=== PATIENT | female | born 1955 | race Caucasian/White ===

== ENCOUNTER → 2016-04-14 | Outpatient (CLI) | payer OTHER ==
[~2016-04-14] MED LIST: CRDCD120 PO; OMEP20CA9 PO
--- NOTE | 2016-04-14 13:26 | MAMMOGRAPHY REPORT ---
BILATERAL DIGITAL DIAGNOSTIC MAMMOGRAM TOMOSYNTHESIS WITH CAD: 04/14/2016 CLINICAL HISTORY: History of left breast cancer status post lumpectomy. Also status post benign johnny gical excisional biopsy. The patient reports no current complaints. TECHNIQUE: Breast tomosynthesis in addition to standard 2D mammography was performed. Current study was also evaluated with a Computer Aided Detection (CAD) system. Bilateral CC and MLO 2-D and allie synthesis images and spot magnification left CC and ML views were obtained. COMPARISON: Comparison is made to exams dated: 08/11/2015 mammogram, 12/29/2014 mammogram, 4 mammogram, 06/23/2014 mammogram, 12/23/2013 mammogram, and 10/07/2010 mammogram - [facility]. BREAST COMPOSITION: There are scattered areas of fibroglandular density in both breasts. FINDINGS: There are stable postsurgical changes in the left upper outer quadrant from prior lumpect norman, including density, architectural distortion, and surgical clips at the lumpectomy bed. Spot ma gnification views of the lumpectomy bed demonstrate a few coarse benign dystrophic calcifications an terior and inferior to the lumpectomy bed. Additionally, there are a few punctate benign-appearing calcifications projecting over the lumpectomy bed on the MLO view and projecting lateral to the lump ectomy bed on the cc view, which are stable compared to prior exams dating back to at least 12/30/19 15. No suspicious cluster of mammographic calcifications is seen. The remainder of both breasts are stable compared to prior exams, without suspicious masses, calcifi cations, or areas of architectural distortion noted. There is stable mild diffuse left breast skin thickening, likely a sequela of radiation therapy. Other scattered bilateral benign-appearing calci fications are not significantly changed. Small benign-appearing mass in the right superior breast o n the MLO view is stable dating back to at least 2008 exam. IMPRESSION: ACR BI-RADS CATEGORY 2: BENIGN Stable posttreatment changes in the left breast, with no mammographic evidence of malignancy in eith er breast. Recommend routine bilateral mammograms in one year; I would recommend the patient remain a diagnostic patient next year in case additional views need to be obtained of the lumpectomy bed. The patient has been verbally notified of the results. Approximately 10% of breast cancers are not detected with mammography. A negative mammographic repor t should not delay biopsy if a clinically suggestive mass is present. Billie Lemons M.D. ah/:04/14/2016 13:10:04 Yarn Tester: Debi NICK(Mikey)(M), [facility] letter sent: Normal 1/2 BI-RADS Code: ACR BI-RADS Category 2: Benign
== END | disposition home or self-care (01) ==
LOC: C.MAMM 12:39
PROVIDERS: ATTEND Internal Medicine
DX: Z08 Encounter for follow-up examination after completed treatment for malignant neoplasm (principal); Z85.3 Personal history of malignant neoplasm of breast

== ENCOUNTER → 2016-05-17 | Outpatient (CLI) | payer OTHER | END | disposition home or self-care (01) | LOC: C.MAMM 09:22 | PROVIDERS: ATTEND Internal Medicine Hematology & Oncology | DX: C50.919 Malignant neoplasm of unspecified site of unspecified female breast (principal) ==

== ENCOUNTER → 2016-11-10 | Outpatient (CLI) | payer OTHER ==
--- NOTE | 2016-11-10 08:05 | DIAGNOSTIC IMAGING REPORT ---
CHEST 2 VIEWS ROUTINE CLINICAL HISTORY: 61 years-old Female presenting with R05 cough. TECHNIQUE: PA and lateral views of the chest were obtained. COMPARISON: 06/18/2014. FINDINGS: Surgical clips project over the left lung base likely within the left breast. Cardiomediastinal silhouette normal. Lungs and pleural spaces clear. Osseous structures normal. Upper abdomen normal. IMPRESSION: 1. No acute cardiopulmonary disease. Electronically signed by: Marco Lange M.D. 11/10/2016 8:04 AM Dictated Date/Time: 11/10/2016 8:03 AM
[2016-11-10 09:28] LABS: BASO % 0.5 %; BASO ABS # 0.03 K/uL (0-0.2); COMPLETE YES; EOS % 3.7 %; HEMATOCRIT 36.7 % (37-47); IG% 0.2 %; LYMPH % 30.8 %; LYMPH ABS # 1.74 K/uL (1.2-3.4); MEAN CELL VOLUME 92.9 fL (80-100); MEAN CORPUSCULAR HEMOGLOBIN 31.4 pg (25-34); MEAN CORPUSCULAR HGB CONC 33.8 g/dl (32-36); MEAN PLATELET VOLUME 11.7 fL (7.4-10.4); MONO % 8.1 %; NEUT % 56.7 %; PLATELET COUNT 217 K/uL (130-400); RED BLOOD COUNT 3.95 M/uL (4.2-5.4); WHITE BLOOD COUNT 5.65 K/uL (4.8-10.8)
[2016-11-10 09:41] LABS: ALT/SGPT 19 U/L (12-78); AST/SGOT 15 U/L (15-37); BLOOD UREA NITROGEN 15 mg/dl (7-18); CALCIUM 8.8 mg/dl (8.5-10.1); CARBON DIOXIDE 26 mmol/L (21-32); CHLORIDE 110 mmol/L (98-107); CREATININE 0.67 mg/dl (0.60-1.20); GLUCOSE 84 mg/dl (70-99); SODIUM 143 mmol/L (136-145)
[2016-11-10 09:53] LABS: ALB/GLOB RATIO 1.1 (0.9-2); ALKALINE PHOSPHATASE 59 U/L (45-117); CHOLESTEROL 186 mg/dl (0-200); CHOLESTEROL/HDL RATIO 2.8; HDL CHOLESTEROL 66 mg/dl; LDL CHOLESTEROL CALCULATED 103 mg/dl; TRIGLYCERIDES 84 mg/dl (0-150); VERY LOW DENSITY LIPOPROT CALC 17 mg/dl
== END | disposition home or self-care (01) ==
LOC: C.RAD 07:29
PROVIDERS: ATTEND Internal Medicine
DX: R05 Cough (principal); K21.9 Gastro-esophageal reflux disease without esophagitis

== ENCOUNTER → 2016-12-06 | Outpatient (CLI) | payer OTHER ==
[2016-12-06 12:26] LABS: URINE APPEARANCE CLEAR (CLEAR); URINE BILIRUBIN NEG (NEG); URINE COLOR YELLOW; URINE EPITHELIAL CELL AUTO 0-5 /lpf (0-5); URINE NITRITE NEG (NEG); URINE PH 5.5 (4.5-7.5); URINE SPECIFIC GRAVITY 1.011 (1.000-1.030); UROBILINOGEN NEG (NEG); ZZUR CULT IF INDIC CLEAN CATCH NO
[2016-12-06 12:28] LABS: MANUAL MICROSCOPIC REQUIRED? NO; REVIEW REQ? NO
== END | disposition home or self-care (01) ==
LOC: C.LAB 09:34
PROVIDERS: ATTEND Physician Assistant
DX: R31.9 Hematuria, unspecified (principal); R30.0 Dysuria

== ENCOUNTER → 2017-02-07 | Outpatient (CLI) | payer OTHER ==
[2017-02-07 18:55] LABS: URINE APPEARANCE CLEAR (CLEAR); URINE BILIRUBIN NEG (NEG); URINE COLOR YELLOW; URINE EPITHELIAL CELL AUTO 0-5 /lpf (0-5); URINE NITRITE NEG (NEG); URINE SPECIFIC GRAVITY 1.013 (1.000-1.030); UROBILINOGEN NEG (NEG); ZZUR CULT IF INDIC CLEAN CATCH NO
[2017-02-07 18:57] LABS: MANUAL MICROSCOPIC REQUIRED? NO; REVIEW REQ? NO
== END | disposition home or self-care (01) ==
LOC: C.LAB 17:38
PROVIDERS: ATTEND Internal Medicine
DX: N39.0 Urinary tract infection, site not specified (principal)

== ENCOUNTER → 2017-05-30 | Outpatient (CLI) | payer OTHER ==
--- NOTE | 2017-05-31 07:52 | MAMMOGRAPHY REPORT ---
BILATERAL DIGITAL DIAGNOSTIC MAMMOGRAM TOMOSYNTHESIS WITH CAD AND TARGETED LEFT ULTRASOUND: 05/30/2017 CLINICAL HISTORY: 61-year-old woman with a personal history of left breast cancer, 3 left breast surg eries and radiation therapy. Over the past 3-4 months she has been noticing an inverted left nipple, which she reports was also the case when her breast cancer was diagnosed. No focal skin erythema or other abnormality. No nipple discharge. Also due for annual bilateral screening exam. TECHNIQUE: Bilateral breast tomosynthesis in addition to standard 2D mammography was performed. Curre nt study was also evaluated with a Computer Aided Detection (CAD) system. COMPARISON: Comparison is made to exams dated: 04/14/2016 mammogram, 08/11/2015 mammogram, 12/29/2014 m ammogram, 12/13/2013 mammogram, 10/07/2010 mammogram - [facility], and 05/03/2005 [facility] mogram - [facility] BREAST COMPOSITION: There are scattered areas of fibroglandular density in both breasts. FINDINGS: There is expected architectural distortion and surgical clips in the upper outer posterior left breast, at a site of prior lumpectomy. There is also expected architectural distortion in the c entral left breast at the site of another lumpectomy. There is mild diffuse skin thickening of the l eft breast, which appears similar to prior mammograms dating back to at least 12/29/2014, and probabl y related to prior treatment. Mammographically, the left nipple appears flat but is not mammographic ally inverted. There is no evidence of a new suspicious mass, developing asymmetry, unexpected archi tectural distortion or suspicious calcifications in either breast. Targeted ultrasound was performed in the periareolar and retroareolar left breast. There is no evide nce of a parenchymal mass to explain an inverted nipple and on visual inspection the nipple appears m ildly flat but is not visibly inverted at this time. Nevertheless, given that it is a change for the patient, continued clinical monitoring is recommended. The patient then pointed out a second area o f concern which she describes as swelling and pain in the left axillary tail/inferior axillary region and additional targeted ultrasound was performed over this area as well. On palpation there is a fi rm elliptical area near a skin surgical scar. On ultrasound, there is sonographically normal tissue without evidence of a suspicious solid or cystic mass. No focal skin thickening or lymphadenopathy i s seen. IMPRESSION: ACR BI-RADS CATEGORY 2: BENIGN, TARGETED ULTRASOUND ACR BI-RADS CATEGORY 2: BENIGN 1. Stable bilateral mammograms, without definite mammographic evidence of malignancy. 2. No targeted sonographic evidence of malignancy in the left periareolar/retroareolar left breast t o explain the reported left nipple inversion, or the area of soreness and swelling near the left axil la. Therefore, continued clinical follow-up and clinical monitoring is recommended, as biopsy of a c linically suspicious mass should not be precluded by negative imaging. 3. Otherwise, recommend bilateral mammography in 1 year. These results and recommendations were discussed with the patient at the time of the exam. Approximately 10% of breast cancers are not detected with mammography. A negative mammographic report should not delay biopsy if a clinically suggestive mass is present. Yenifer Espinoza M.D. ay/:05/30/2017 12:02:25 Lumber Tripper: Elmer NICK(Mikey)(Lexii), [facility] letter sent: Normal 1/2 BI-RADS Code: ACR BI-RADS Category 2: Benign Ultrasound BI-RADS: ACR BI-RADS Category 2: Benign
== END | disposition home or self-care (01) ==
LOC: C.MAMM 09:51
PROVIDERS: ATTEND Internal Medicine
DX: R92.2 Inconclusive mammogram (principal); N64.59 Other signs and symptoms in breast; Z85.3 Personal history of malignant neoplasm of breast